=== PATIENT | male | born 1950 | race Caucasian/White ===

== ENCOUNTER 2021-12-24 07:26 | Outpatient (CLI) | payer MEDICARE | END 2021-12-24 07:27 | disposition home or self-care (01) | LOC: CSHCT 07:26 | PROVIDERS: ATTEND Family Medicine | DX: Z12.2 Encounter for screening for malignant neoplasm of respiratory organs (principal); Z87.891 Personal history of nicotine dependence; J44.9 Chronic obstructive pulmonary disease, unspecified | CPT/HCPCS: 71271 ==

== ENCOUNTER 2024-09-25 07:27 | Outpatient (CLI) | payer MEDICARE, OTHER | END 2024-09-25 07:28 | disposition home or self-care (01) | LOC: CSHCT 07:27 | PROVIDERS: ATTEND Nurse Practitioner | DX: Z12.2 Encounter for screening for malignant neoplasm of respiratory organs (principal); Z87.891 Personal history of nicotine dependence; N28.9 Disorder of kidney and ureter, unspecified | CPT/HCPCS: 71271 ==

== ENCOUNTER 2024-09-28 10:21 | Outpatient (CLI) | payer MEDICARE, OTHER | END 2024-09-28 10:22 | disposition home or self-care (01) | LOC: CSHULT 10:21 | PROVIDERS: ATTEND Nurse Practitioner | DX: N28.9 Disorder of kidney and ureter, unspecified (principal); N28.89 Other specified disorders of kidney and ureter | CPT/HCPCS: 76770 ==